=== PATIENT | female | born 1950 | race Caucasian/White ===

== ENCOUNTER → 2022-02-24 | Outpatient (CLI) | payer MEDICARE, BC ==
[~2022-02-24] MED LIST: ATOR1TAB19; BAYE81TA10 PO; MELO15TA28; OLME1TAB49; POTA10CA32; VITA100020 PO
== END ==
LOC: M ONCR 08:49
PROVIDERS: ATTEND General Practice
DX: C50.912 Malignant neoplasm of unspecified site of left female breast (principal); C50.911 Malignant neoplasm of unspecified site of right female breast; Z80.0 Family history of malignant neoplasm of digestive organs; Z80.1 Family history of malignant neoplasm of trachea, bronchus and lung; Z80.3 Family history of malignant neoplasm of breast; Z88.0 Allergy status to penicillin; Z88.1 Allergy status to other antibiotic agents; Z90.13 Acquired absence of bilateral breasts and nipples; Z92.21 Personal history of antineoplastic chemotherapy

== ENCOUNTER 2022-04-15 08:40 | Outpatient (RCR) | payer MEDICARE, BC | END 2022-04-28 | LOC: M ONCR 08:40 | PROVIDERS: ATTEND General Practice | DX: C50.811 Malignant neoplasm of overlapping sites of right female breast (principal) ==

== ENCOUNTER → 2022-05-28 | Outpatient (RCR) | payer MEDICARE, BC | LOC: M ONCR 04-29 13:37 | PROVIDERS: ATTEND General Practice | DX: C50.811 Malignant neoplasm of overlapping sites of right female breast (principal) ==

== ENCOUNTER 2022-06-08 11:43 | Outpatient (RCR) | payer MEDICARE, BC | END 2022-06-28 | LOC: M ONCR 11:43 | PROVIDERS: ATTEND General Practice | DX: C50.811 Malignant neoplasm of overlapping sites of right female breast (principal) ==

== ENCOUNTER 2022-07-16 09:10 | Outpatient (RCR) | payer MEDICARE, BC | END 2022-07-29 | LOC: M PT 09:10 | PROVIDERS: ATTEND General Practice | DX: C50.811 Malignant neoplasm of overlapping sites of right female breast (principal) ==

== ENCOUNTER → 2022-12-08 | Outpatient (CLI) | payer BC, MEDICARE ==
[~2022-12-08] MED LIST changes: -POTA10CA32; +POTA10CA33
== END ==
LOC: M ONCR 11:21
PROVIDERS: ATTEND Radiology Radiation Oncology
DX: Z08 Encounter for follow-up examination after completed treatment for malignant neoplasm (principal); Z85.3 Personal history of malignant neoplasm of breast; Z79.1 Long term (current) use of non-steroidal anti-inflammatories (NSAID); Z79.82 Long term (current) use of aspirin; Z79.899 Other long term (current) drug therapy; Z88.0 Allergy status to penicillin; Z88.1 Allergy status to other antibiotic agents; Z88.8 Allergy status to other drugs, medicaments and biological substances; Z90.13 Acquired absence of bilateral breasts and nipples; Z91.048 Other nonmedicinal substance allergy status; Z91.09 Other allergy status, other than to drugs and biological substances; Z92.3 Personal history of irradiation